=== PATIENT | female | born 1960 | race Caucasian/White ===

== ENCOUNTER 2017-11-21 14:20 | Emergency (ER) | payer OTHER ==
[~2017-11-21] VITALS: Ht 172.7 cm; Wt 63.5 kg
[~2017-11-21 14:20] MED LIST: ALBU90OI INH; AMOCLA875 PO; AZIT250 PO; BECL40OI INH; BUPR150T2 PO; CEPH500 PO; CLIN150 PO; FLUO10 PO; HYDACE5 PO; HYDACE5325 PO; IBUP800 PO; LITH300C PO; LORA2 PO; META800 PO; Naprosyn500 MG PO; ONDA4ODT MM; OXYACE5T PO; OXYACE7.5T PO; PRED20 PO; RISP1 PO; RXCLIN PO; RXHYD5325 PO; RXLORA1 PO; RXOXYACE PO; SULTRIDS PO; VITAMINS
[2017-11-21] MEDS ORDERED: Norco 5-325 Ta1 EACH PO (15:26)
[2017-11-21] MEDS ORDERED: CYCL10 PO (15:26)
== END 2017-11-21 15:33 | disposition home or self-care (01) ==
LOC: ER 14:20
DX: S16.1XXA Strain of muscle, fascia and tendon at neck level, initial encounter (principal); S39.012A Strain of muscle, fascia and tendon of lower back, initial encounter; J44.9 Chronic obstructive pulmonary disease, unspecified; F31.9 Bipolar disorder, unspecified; F17.200 Nicotine dependence, unspecified, uncomplicated; Z79.899 Other long term (current) drug therapy; Z79.52 Long term (current) use of systemic steroids; V49.9XXA Car occupant (driver) (passenger) injured in unspecified traffic accident, initial encounter
CPT/HCPCS: 72040; 72100; 73030; 99283

== ENCOUNTER 2018-02-23 09:39 | Emergency (ER) | payer OTHER ==
[~2018-02-23] VITALS: Ht 172.7 cm; Wt 81.7 kg
[~2018-02-23 09:39] MED LIST changes: +CYCL10 PO; +Norco 5-325 Ta1 EACH PO
[2018-02-23] MEDS ORDERED: Amoxicillin500 MG PO (10:09)
[2018-02-23] MEDS ORDERED: PERIDEX15 ML MM (10:09)
[2018-02-23] MEDS ORDERED: NAPR550 PO (10:09)
== END 2018-02-23 10:24 | disposition home or self-care (01) ==
LOC: ER 09:39
DX: K02.9 Dental caries, unspecified (principal); J44.9 Chronic obstructive pulmonary disease, unspecified; F32.9 Major depressive disorder, single episode, unspecified; F17.200 Nicotine dependence, unspecified, uncomplicated; Z79.899 Other long term (current) drug therapy; Z79.52 Long term (current) use of systemic steroids
CPT/HCPCS: 96372; 99283; J1885

== ENCOUNTER 2019-06-20 14:05 | Emergency (ER) | payer OTHER ==
[~2019-06-20] VITALS: Ht 172.7 cm; Wt 68.0 kg
[~2019-06-20 14:05] MED LIST changes: +Amoxicillin500 MG PO; +NAPR550 PO; +PERIDEX15 ML MM
== END 2019-06-20 15:26 | disposition home or self-care (01) ==
LOC: ER 14:05
DX: S91.332A Puncture wound without foreign body, left foot, initial encounter (principal); Z23 Encounter for immunization; J44.9 Chronic obstructive pulmonary disease, unspecified; F31.9 Bipolar disorder, unspecified; F17.210 Nicotine dependence, cigarettes, uncomplicated; Z79.899 Other long term (current) drug therapy; Z79.51 Long term (current) use of inhaled steroids; W45.0XXA Nail entering through skin, initial encounter
CPT/HCPCS: 90471; 90714; 99283-25

== ENCOUNTER 2019-08-06 07:31 | Emergency (ER) | payer OTHER ==
[~2019-08-06] VITALS: Ht 172.7 cm; Wt 68.0 kg
[2019-08-06] MEDS ORDERED: HYDR1TAB94 PO (07:43)
[2019-08-06] MEDS ORDERED: Cleocin HCl300 MG PO (07:51)
== END 2019-08-06 08:19 | disposition home or self-care (01) ==
LOC: ER 07:31
DX: K02.9 Dental caries, unspecified (principal); J44.9 Chronic obstructive pulmonary disease, unspecified; F17.200 Nicotine dependence, unspecified, uncomplicated
CPT/HCPCS: 99282; A9270

== ENCOUNTER 2019-09-22 11:49 | Emergency (ER) | payer OTHER ==
[~2019-09-22] VITALS: Ht 172.7 cm; Wt 68.0 kg
[~2019-09-22 11:49] MED LIST changes: +Cleocin HCl300 MG PO; +HYDR1TAB94 PO
[2019-09-22] MEDS ORDERED: QVAR REDIHALE10.6 GM INH (12:03)
[2019-09-22] MEDS ORDERED: Amoxicillin875 MG PO (12:15)
[2019-09-22] MEDS ORDERED: PAROEX473 ML MM (12:15)
[2019-09-22] MEDS ORDERED: Norco 5-325 Ta1 EACH PO (12:15)
== END 2019-09-22 12:47 | disposition home or self-care (01) ==
LOC: ER 11:49
DX: K04.7 Periapical abscess without sinus (principal); K03.81 Cracked tooth; J44.9 Chronic obstructive pulmonary disease, unspecified; F31.9 Bipolar disorder, unspecified; F17.200 Nicotine dependence, unspecified, uncomplicated; Z79.899 Other long term (current) drug therapy; Z79.51 Long term (current) use of inhaled steroids
CPT/HCPCS: 99282

== ENCOUNTER 2019-12-06 21:33 | Emergency (ER) | payer OTHER ==
[~2019-12-06 21:33] MED LIST changes: +Amoxicillin875 MG PO; +PAROEX473 ML MM; +QVAR REDIHALE10.6 GM INH
== END 2019-12-06 22:38 | disposition left against medical advice (07) ==
LOC: ER 21:33
DX: Z53.21 Procedure and treatment not carried out due to patient leaving prior to being seen by health care provider (principal)

== ENCOUNTER 2022-03-17 01:05 | Emergency (ER) | payer OTHER ==
[~2022-03-17] VITALS: Ht 172.7 cm; Wt 63.5 kg
[2022-03-17 01:30] LABS: PCO2 Arterial 43.6 mmHg (35-45)
[2022-03-17 02:03] LABS: Base Excess Venous 4.1 mmol/L; Bicarbonate Venous 28.1 mmol/L (24.0-30.0); PCO2 Venous 35.8 mmHg (38-42); PO2 Venous 173 mmHg (38-42); pH Blood Venous 7.49 (7.34-7.37)
[2022-03-17 02:08] LABS: Albumin, Blood 3.6 g/dL (3.4-5.0); Albumin/Globulin Ratio 1.2 (0.8-1.8); Bilirubin, Total 0.3 mg/dL (0.1-1.0); Bun/Creatinine Ratio 37.2 (12.0-20.0); Calcium, Blood 8.7 mg/dL (8.5-10.1); Creatinine, Blood 0.62 mg/dL (0.40-1.00); Globulin, Blood 3.1 g/dL (2.2-4.0); Potassium, Blood 3.4 mmol/L (3.5-5.5); Total Protein, Blood 6.7 g/dL (6.4-8.2)
[2022-03-17 02:16] LABS: BASOPHILS ABSOLUTE AUTO 0.04 K/mm3 (0.00-0.23); BASOPHILS PERCENT AUTO 1 % (0-2); EOSINOPHILS ABSOLUTE AUTO 0.36 K/mm3 (0.00-0.68); EOSINOPHILS PERCENT AUTO 4 % (0-6); Hematocrit 36.7 % (33.0-51.0); Hemoglobin 12.6 g/dL (11.5-16.0); IMMATURE GRAN ABSOLUTE AUTO 0.01 K/mm3 (0.00-0.10); IMMATURE GRAN PERCENT AUTO 0 % (0-1); LYMPHOCYTES ABSOLUTE AUTO 1.81 K/mm3 (0.84-5.20); LYMPHOCYTES PERCENT AUTO 22 % (21-46); MONOCYTES PERCENT AUTO 5 % (4-13); Mean Corpuscular HGB 30.9 pg (26.0-34.0); Mean Corpuscular HGB Conc 34.3 g/dL (31.5-36.5); Mean Corpuscular Volume 90 fL (80-100); Mean Platelet Volume 9.4 fL (9.1-12.4); NEUTROPHILS ABSOLUTE AUTO 5.76 K/mm3 (1.96-9.15); NEUTROPHILS PERCENT AUTO 69 % (41-73); Platelet Count 206 K/mm3 (150-400); RDW Coefficient Variation 11.7 % (11.7-14.2); RDW Standard Deviation 38.7 fL (35.1-46.3); Red Blood Cell Count 4.08 M/mm3 (3.80-5.20); White Blood Cell Count 8.38 K/mm3 (4.00-11.30)
[2022-03-17 02:16] LABS: Base Excess Venous 3.5 mmol/L; Bicarbonate Venous 26.4 mmol/L (24.0-30.0); PO2 Venous 46.4 mmHg (38-42); pH Blood Venous 7.37 (7.34-7.37)
== END 2022-03-17 06:45 | disposition home or self-care (01) ==
LOC: ER 01:05
PROVIDERS: Student in an Organized Health Care Education/Training Program
DX: T59.811A Toxic effect of smoke, accidental (unintentional), initial encounter (principal); R49.0 Dysphonia; J44.9 Chronic obstructive pulmonary disease, unspecified; F17.200 Nicotine dependence, unspecified, uncomplicated; F31.9 Bipolar disorder, unspecified; Z79.899 Other long term (current) drug therapy; Y92.029 Unspecified place in mobile home as the place of occurrence of the external cause
CPT/HCPCS: 36600; 71045; 80053; 82375; 82803; 83605; 85025; 93005; 93010; 99284-25

== ENCOUNTER 2024-07-02 11:33 | Emergency (ER) | payer OTHER ==
[~2024-07-02] VITALS: Ht 172.7 cm; Wt 77.1 kg
[2024-07-02 12:04] LABS: BASOPHILS ABSOLUTE AUTO 0.06 K/mm3 (0.00-0.23); BASOPHILS PERCENT AUTO 1 % (0-2); EOSINOPHILS ABSOLUTE AUTO 0.78 K/mm3 (0.00-0.68); EOSINOPHILS PERCENT AUTO 8 % (0-6); Hemoglobin 13.7 g/dL (11.5-16.0); IMMATURE GRAN ABSOLUTE AUTO 0.02 K/mm3 (0.00-0.10); IMMATURE GRAN PERCENT AUTO 0 % (0-1); LYMPHOCYTES ABSOLUTE AUTO 2.17 K/mm3 (0.84-5.20); LYMPHOCYTES PERCENT AUTO 22 % (21-46); MONOCYTES ABSOLUTE AUTO 0.67 K/mm3 (0.16-1.47); MONOCYTES PERCENT AUTO 7 % (4-13); Mean Corpuscular HGB 29.9 pg (26.0-34.0); Mean Corpuscular HGB Conc 33.4 g/dL (31.5-36.5); Mean Corpuscular Volume 90 fL (80-100); Mean Platelet Volume 9.1 fL (9.1-12.4); NEUTROPHILS ABSOLUTE AUTO 6.07 K/mm3 (1.96-9.15); NEUTROPHILS PERCENT AUTO 62 % (41-73); Platelet Count 266 K/mm3 (150-400); RDW Coefficient Variation 11.9 % (11.7-14.2); RDW Standard Deviation 38.5 fL (35.1-46.3); Red Blood Cell Count 4.58 M/mm3 (3.80-5.20); White Blood Cell Count 9.77 K/mm3 (4.00-11.30)
[2024-07-02 12:32] LABS: Influenza A, PCR NEGATIVE (NEGATIVE); Influenza B, PCR NEGATIVE (NEGATIVE); Resp Syncytial Virus, PCR NEGATIVE (NEGATIVE); SARS-Cov-2 (COVID-19) PCR, MMC NEGATIVE (NEGATIVE)
[2024-07-02 12:39] LABS: Albumin, Blood 3.4 g/dL (3.4-5.0); Albumin/Globulin Ratio 0.9 (0.8-1.8); Bilirubin, Total 0.2 mg/dL (0.1-1.0); Bun/Creatinine Ratio 36.8 (12.0-20.0); Calcium, Blood 8.8 mg/dL (8.5-10.1); Creatinine, Blood 0.6 mg/dL (0.40-1.00); Globulin, Blood 3.6 g/dL (2.2-4.0); Potassium, Blood 4.2 mmol/L (3.5-5.5)
[2024-07-02] MEDS ORDERED: Ipratropium/Albuterol SulF 2.5-0.5MG/3 ML Amp INH ONE (15:15)
[2024-07-02] MEDS ORDERED: Albuterol 2.5 MG/3 ML VIAL INH SCH (15:45)
[2024-07-02] MEDS ORDERED: Zithromax250 MG PO (16:57)
[2024-07-02] MEDS ORDERED: Prednisone20 MG PO (16:57)
[2024-07-02 17:10] VITALS: BP 155/68
== END 2024-07-02 17:20 | disposition home or self-care (01) ==
LOC: ER 11:33
PROVIDERS: Emergency Medicine; Student in an Organized Health Care Education/Training Program
DX: I50.9 Heart failure, unspecified (principal); J44.1 Chronic obstructive pulmonary disease with (acute) exacerbation; F17.210 Nicotine dependence, cigarettes, uncomplicated
CPT/HCPCS: 0241U; 71046; 80053; 85025; 93005; 93010; 94640; 94644; 94664; 99285-25